=== PATIENT | female | born 1995 | race Caucasian/White ===

== ENCOUNTER 2018-11-06 14:56 | Emergency (ER) | payer BC ==
[2018-11-06 16:28] VITALS: BP 108/74
--- NOTE | 2018-11-06 16:46 | UC ---
Shoulder Pain HPI - HPI Summary HPI Summary: Pt presents with c/o right shoulder pain that happened after playing football with friends and another player got arm "hooked" in pt's elbow and then "twisted" elbow and shoulder forward. Pt has hx of previous injury to same shoulder two years ago. Pt states that pain worsens with internal rotation and lifting arm overhead. - History of Current Complaint Chief Complaint: UCUpperExtremity Stated Complaint: RIGHT SHOULDER INJURY Time Seen by Provider: 11/06/18 16:10 Hx Obtained From: Patient Hx Last Menstrual Period: 10/30/18 ?: No Onset/Duration: Sudden Onset, Still Present Timing: Constant Severity Initially: Moderate Severity Currently: Mild Location Of Pain: Is Discrete @ - right shoulder and upper back Pain Intensity: 7 Character: Dull, Aching, Stiffness Aggravating Factor(s): Movement, Lifting, Flexion, Internal Rotation Associated Signs And Symptoms: Positive: Negative Related History: Dominant Hand Right - Risk Factors Non-Orthopedic Risk Factor: Negative DVT Risk Factors: Negative Septic Arthritis Risk Factor: Negative - Allergies/Home Medications Allergies/Adverse Reactions: Allergies Allergy/AdvReac Type Severity Reaction Status Date / Time No Known Allergies Allergy Verified 11/06/18 16:28 Home Medications: Home Medications NK [No Home Medications Reported] 11/06/18 [History Confirmed 11/06/18] PMH/Surg Hx/FS Hx/Imm Hx Previously Healthy: Yes - Surgical History Surgical History: Yes Surgery Procedure, Year, and Place: tonsillectomy-age 7 - Family History Known Family History: Positive: Cardiac Disease - Social History Occupation: Student Lives: With Family Alcohol Use: Occasionally Substance Use Type: None Smoking Status (MU): Never Smoked Tobacco Have You Smoked in the Last Year: No - Immunization History Vaccination Up to Date: Yes Review of Systems All Other Systems Reviewed And Are Negative: Yes Constitutional: Positive: Negative Skin: Positive: Negative Eyes: Positive: Negative ENT: Positive: Negative Respiratory: Positive: Negative Cardiovascular: Positive: Negative Gastrointestinal: Positive: Negative Genitourinary: Positive: Negative Motor: Positive: Decreased ROM - pain with ROM Neurovascular: Positive: Negative Musculoskeletal: Positive: Arthralgia, Decreased ROM, Myalgia Neurological: Positive: Negative Psychological: Positive: Negative Is Patient Immunocompromised?: No Physical Exam Triage Information Reviewed: Yes Appearance: Pain Distress - with ROM Vital Signs: Initial Vital Signs Temp 98.9 F 11/06/18 16:23 Pulse 83 11/06/18 16:23 Resp 16 11/06/18 16:23 BP 108/74 11/06/18 16:23 Pulse Ox 100 11/06/18 16:23 Vital Signs Reviewed: Yes Eye Exam: Normal ENT: Positive: Hearing grossly normal Dental Exam: Normal Neck exam: Normal Respiratory Exam: Normal Respiratory: Positive: No respiratory distress Musculoskeletal: Positive: Strength Intact, ROM Limited @ - pain with ROM Neurological Exam: Normal Psychological Exam: Normal Skin Exam: Normal Shoulder Course/Dx - Differential Dx/Diagnosis Differential Diagnosis/HQI/PQRI: Rotator Cuff Injury, Sprain, Strain Provider Diagnosis: Right shoulder strain Discharge ED - Sign-Out/Discharge Documenting (check all that apply): Patient Departure All imaging exams completed and their final reports reviewed: No Studies - Discharge Plan Condition: Stable Disposition: HOME Patient Education Materials: Shoulder Sprain (ED), Shoulder Pain (ED) Referrals: [facility] [Outside] - If Needed Sharif Moreno MD [Emergency Provider] - If Needed No Primary Care Phys,NOPCP [Primary Care Provider] - - Billing Disposition and Condition Condition: STABLE Disposition: Home - Attestation Statements Provider Attestation: I was available for consult. This patient was seen by the CHARLES. The patient was not presented to , seen by or examined by wy -Sharif Moreno MD
== END 2018-11-06 16:54 | disposition home or self-care (01) ==
LOC: UCCORT 14:56
DX: S46.911A Strain of unspecified muscle, fascia and tendon at shoulder and upper arm level, right arm, initial encounter (principal); X50.0XXA Overexertion from strenuous movement or load, initial encounter; Y93.61 Activity, american tackle football; Y92.9 Unspecified place or not applicable
CPT/HCPCS: 99201; G0463

== ENCOUNTER 2018-11-14 09:14 | Emergency (ER) | payer BC ==
--- OUTSIDE RECORDS SUMMARY | 2018-11-14 10:26 | XMS REPORT | Continuity of Care Document ---
:1995 External Reference #:[id number] Author Name Imani Mccoy MD Address [address] [place] [id number] Problems Description No Information Available Social History Type Date Description Comments Sex Unknown Tobacco Use Start: Unknown Patient has never smoked Smoking Status Reviewed: 11/08/18 Patient has never smoked Allergies, Adverse Reactions, Alerts Description No Known Drug Allergies Medications Active Medications SIG Qnty Indications Ordering Provider Date Valtrex 1 by mouth as Unknown 500mg Tablets needed for symptoms Immunizations Description No Information Available Vital Signs Date Vital Result Comment 11/08/2018 3:21pm Height 68 inches 5'8" Weight 160.00 lb Heart Rate 83 /min BP Systolic 108 mmHg BP Diastolic 74 mmHg BMI (Body Mass Index) 24.3 kg/m2 Results Description No Information Available Procedures Description No Information Available Medical Devices Description No Information Available Encounters Description No Information Available Assessments Date Code Description Provider 11/08/2018 M25.511 Pain in right shoulder Imani Mccoy MD Plan of Treatment 11/08/2018 - Imani Mccoy MDM25.511 Pain in right shoulderNew Xrays:Shoulder Right 2+ VWS, Ordered: 11/08/18MRI Shoulder Arthrogram Rightw, Ordered: New Therapy:Physical TherapyComments:The patient had an injury to her right shoulder about 3 weeks ago. Since then she has had persistent pain and diminished motion and strength in the shoulder. Her x-rays show no bony abnormalities.An ultrasound exam today showed a possible small tear of the supraspinatus tendon. Her exam is concerning for a possible labral tear. I recommended that she start physical therapy focused on motion and strengthening of the shoulder. I would like to obtain a MRI arthrogram of the shoulder for further evaluation. She should work on gentle motion of the shoulder, but should do no heavy lifting,pushing, or pulling with her right arm. She is to follow-up with me after the MRI has been obtained.M25.511 Pain in right shoulderNew Xrays:Shoulder Right 2+ VWS, Ordered: 11/08/18MRI Shoulder Arthrogram Rightw, Ordered: 11/08/18New Therapy:Physical TherapyComments:The patient had an injury to her right shoulder about 3 weeks ago. Since then she has had persistent pain and diminished motion and strength in the shoulder. Her x-rays show no bony abnormalities.An ultrasound exam today showed a possible small tear of the supraspinatus tendon. Her exam is concerning for a possible labral tear. I recommended that she start physical therapy focused on motion and strengthening of the shoulder. I would like to obtain a MRI arthrogram of the shoulder for further evaluation. She should work on gentle motion of the shoulder, but should do no heavy lifting,pushing, or pulling with her right arm. She is to follow-up with me after the MRI has been obtained. Functional Status Description No Information Available Mental Status Description No Information Available Referrals Description No Information Available
[2018-11-14 10:32] VITALS: BP 115/74
--- NOTE | 2018-11-14 10:50 | UC ---
Throat Pain/Nasal Nick HPI - HPI Summary HPI Summary: 23-year-old woman comes in with a chief complaint of one day of upper respiratory tract infection symptoms. She has clear rhinorrhea also developed some cold sores. Patient is taken her Valtrex for cold sores. Denies any sore throat or chest congestion. Patient had some vomiting during the night. Since that time she's been able tolerate some by mouth. No complaint of any abdominal pain. - History of Current Complaint Chief Complaint: UCGeneralIllness Stated Complaint: VOMITTING,STUFFY NOSE Time Seen by Provider: 11/14/18 10:43 Hx Last Menstrual Period: ~10/31/18 Pain Intensity: 0 - Allergies/Home Medications Allergies/Adverse Reactions: Allergies Allergy/AdvReac Type Severity Reaction Status Date / Time No Known Allergies Allergy Verified 11/14/18 10:28 Home Medications: Home Medications ValACYclovir (*) [Valtrex 500 mg (*)] 2,000 mg PO ONCE 11/14/18 [History Confirmed 11/14/18] PMH/Surg Hx/FS Hx/Imm Hx Previously Healthy: Yes - HSV - Surgical History Surgical History: Yes Surgery Procedure, Year, and Place: T&A, ~2002 - Family History Known Family History: Positive: Cardiac Disease - Social History Alcohol Use: Occasionally Substance Use Type: None Smoking Status (MU): Never Smoked Tobacco Have You Smoked in the Last Year: No - Immunization History Vaccination Up to Date: Yes Review of Systems All Other Systems Reviewed And Are Negative: Yes Constitutional: Positive: Other - SEE HPI Skin: Positive: Other - SEE HPI Eyes: Positive: Negative ENT: Positive: Nasal Discharge, Sinus Congestion Respiratory: Positive: Negative Cardiovascular: Positive: Negative Gastrointestinal: Positive: Vomiting, Other - SEE HPI Motor: Positive: Negative Neurovascular: Positive: Negative Musculoskeletal: Positive: Negative Neurological: Positive: Negative Psychological: Positive: Negative Is Patient Immunocompromised?: No Physical Exam Triage Information Reviewed: Yes Appearance: No Pain Distress, Well-Nourished, Ill-Appearing - MILD Vital Signs: Initial Vital Signs Temp 99 F 11/14/18 10:26 Pulse 88 11/14/18 10:26 Resp 16 11/14/18 10:26 BP 115/74 11/14/18 10:26 Pulse Ox 100 11/14/18 10:26 Vital Signs Reviewed: Yes Eye Exam: Normal Eyes: Positive: Conjunctiva Clear ENT: Positive: Pharynx normal, Nasal congestion, Nasal drainage, TMs normal, Other - HSV SORES ON LIPS Neck: Positive: Supple Respiratory: Positive: Lungs clear, Normal breath sounds, No respiratory distress Cardiovascular: Positive: RRR Musculoskeletal: Positive: Strength Intact, ROM Intact Neurological: Positive: Alert Psychological: Positive: Age Appropriate Behavior Skin: Positive: Other - HSV SORES ON LIPS Throat Pain/Nasal Course/Dx - Course Course Of Treatment: Patient has Valtrex she'll continue that and also continue symptomatic treatment for her upper respiratory tract infection symptoms. - Differential Dx/Diagnosis Provider Diagnosis: Upper respiratory infection Discharge ED - Sign-Out/Discharge Documenting (check all that apply): Patient Departure All imaging exams completed and their final reports reviewed: No Studies - Discharge Plan Condition: Stable Disposition: HOME Patient Education Materials: Upper Respiratory Infection (ED) Forms: *School Release Referrals: [facility] [Outside] Additional Instructions: FOLLOW UP WITH YOUR DOCTOR IF NOT COMPLETELY IMPROVED. GET REEVALUATED SOONER IF NOT IMPROVING OR YOUR CONDITION WORSENS OR ANY QUESTIONS OR CONCERNS - Billing Disposition and Condition Condition: STABLE Disposition: Home
== END 2018-11-14 10:54 | disposition home or self-care (01) ==
LOC: UCCORT 09:14
DX: J06.9 Acute upper respiratory infection, unspecified (principal); B00.1 Herpesviral vesicular dermatitis
CPT/HCPCS: 99211; G0463